=== PATIENT | male | born 1950 | race Caucasian/White ===

== ENCOUNTER → 2016-04-05 | Outpatient (CLI) | payer OTHER ==
--- NOTE | 2016-04-05 12:05 | CT ---
EXAMINATION TYPE: CT abdomen pelvis w con DATE OF EXAM: 04/05/2016 11:45 AM COMPARISON: CT abdomen and pelvis December 07, 2015 HISTORY: Post Op Seroma surgery. Bulge near Drain tube after surgery. CT DLP: 1866 mGycm, Automated Exposure Control for Dose Reduction was Utilized. CONTRAST: CT scan of the abdomen and pelvis is performed without oral but with IV Contrast, patient injected wi th 100 mL of Omnipaque 300. FINDINGS: LUNG BASES: Epicardial pacer wires remain present. Sternal wires are partially imaged. LIVER/GB: Cholecystectomy clips are noted. PANCREAS: No significant abnormality is seen. SPLEEN: Surgical clips along the anterior margin of spleen are redemonstrated. Single 3 mm calcificat ion on axial image 10 is again seen. ADRENALS: No significant abnormality is seen. KIDNEYS: There is redemonstration of 2 calculi measuring 3 mm or smaller scattered throughout the lef t kidney. There is redemonstration of single 3 mm calculus lower pole level right kidney on coronal i mage 55. There is redemonstration of 2 simple appearing cysts lower pole level right kidney measuring between 1 and 2 cm. BOWEL: There is persistent small to moderate size hiatal hernia. Below diaphragm anterior to hernia t here is curvilinear densities could reflect surgical clips from prior surgery redemonstrated. Evaluat ion bowel is suboptimal due to lack of enteric contrast. There is no suspicious small or large bowel dilatation seen appendix is felt within normal limits from the cecum. Amount of fecal material is sli ghtly prominent in the right and transverse colon. Sigmoid colonic diverticulosis is noted. PROSTATE/SEMINAL VESICLES: No gross abnormality seen. LYMPH NODES: No greater than 1cm abdominal or pelvic lymph nodes are appreciated. OSSEOUS STRUCTURES: No significant abnormality is seen. OTHER: There is interval surgery with new nonspecific ill-defined fluid and fat stranding involving a nterior abdominal wall presumed postsurgical. Some new coils above rectus muscles are present. No wel l-formed fluid collection remains present. No persistent ventral wall hernia is noted. IMPRESSION: Interval successful surgical removal of large anterior abdominal fluid collection or sero ma, no residual or new fluid collection is seen. No suspicious ventral wall hernia remains present.
== END | disposition home or self-care (01) ==
LOC: RADCTMAIN 10:29
PROVIDERS: ATTEND Surgery
DX: K91.872 Postprocedural seroma of a digestive system organ or structure following a digestive system procedure (principal)
CPT/HCPCS: 74177; Q9967